=== PATIENT | male | born 1925 | race Caucasian/White ===

== ENCOUNTER 2016-08-17 20:19 | Emergency (ER) | payer MEDICARE, OTHER ==
[2016-03-27 16:00] VITALS: BP 127/50
[~2016-08-17 20:19] MED LIST: ACET-868 PO; ACID1TAB12 PO; ALBU2.5V13 HHN; ALEN70TA3 PO; AMLO2.5T2 PO; ASPI-605 PO; ATOR10TA PO; BISA10SU61 RC; DOCU-270 PO; MAGN400O6 PO; METO25TA20 PO; MULT1TAB11 PO; OMEP20CA10 PO; PROM6.2516 PO; SENN8.6T6 PO; TAMS-12 PO
--- NOTE | 2016-08-17 21:21 | NUR ---
[facility]AK[facility] BY [employer]; PT DEPARTED WITH [employer] [place] WHERE PT IS EXPECTED.
== END 2016-08-17 21:27 | disposition left against medical advice (07) ==
LOC: ER 20:23
DX: Z53.21 Procedure and treatment not carried out due to patient leaving prior to being seen by health care provider (principal)